=== PATIENT | female | born 1965 | race Caucasian/White ===

== ENCOUNTER → 2016-12-25 | Outpatient (CLI) | payer BC ==
[~2016-12-25] VITALS: Ht 162.6 cm; Wt 63.5 kg
[~2016-12-25] MED LIST: ASMANEX TW200 MICROG IH; CALTRATE 600 +1 EAC1 PO; CLARITIN10 MG PO; HYDROCORTISONE45 G1 TP; NASONEX17 GM BOTH NARES; PREMPRO 0.621 TABLE1 PO; PROAIR HFA8.5 GM IH; PROTONIX40 MG PO; SINGULAIR10 MG PO; TYLENOL REGULA325 MG PO
== END | disposition home or self-care (01) ==
LOC: AMB 11:18
PROC: 0DB48ZX Excision of Esophagogastric Junction, Via Natural or Artificial Opening Endoscopic, Diagnostic (ICD-10-PCS; principal; 2016-12-25)
DX: Z09 Encounter for follow-up examination after completed treatment for conditions other than malignant neoplasm (principal); Z87.19 Personal history of other diseases of the digestive system; Z12.11 Encounter for screening for malignant neoplasm of colon; Z86.010 Personal history of colon polyps; K44.9 Diaphragmatic hernia without obstruction or gangrene; J45.909 Unspecified asthma, uncomplicated; K21.9 Gastro-esophageal reflux disease without esophagitis; Z82.49 Family history of ischemic heart disease and other diseases of the circulatory system; Z80.8 Family history of malignant neoplasm of other organs or systems; Z83.71 Family history of colonic polyps; Z88.1 Allergy status to other antibiotic agents
CPT/HCPCS: 88305